=== PATIENT | female | born 1995 | race Two or more races ===

== ENCOUNTER 2021-04-28 08:40 | Emergency (ER) | payer MEDICAID ==
[~2021-04-28] VITALS: Ht 154.9 cm; Wt 58.3 kg
[2021-04-28] MEDS ORDERED: PHENAZOPYRIDINE 200 MG TABLET PO ONE (09:30)
[2021-04-28] MEDS ORDERED: PHENAZOPYRIDINE 200 MG TABLET ONE (09:31)
[2021-04-28 09:38] LABS: MICROSCOPIC INDICATED
[2021-04-28 10:28] LABS: BASOPHILS % (AUTO) 0 % (0-1); EOSINOPHILS % (AUTO) 1 % (1-7); LYMPHOCYTES % (AUTO) 9 % (22-44); MEAN CORPUSCULAR HEMOGLOBIN 29.1 pg (27.0-34.8); MEAN CORPUSCULAR HGB CONC 33.9 g/dL (32.4-35.8); MEAN PLATELET VOLUME 8.3 fL (7.4-10.4); MONOCYTES % (AUTO) 4 % (2-9); NEUTROPHILS % (AUTO) 86 % (42-75); PLATELET COUNT 205 x10^3/uL (130-400); RED BLOOD COUNT 4.88 x10^6/uL (3.82-5.3)
[2021-04-28 10:37] LABS: ALBUMIN 4.1 g/dL (3.4-5.0); ANION GAP 4 mmol/L (5-15); CHLORIDE 108 mmol/L (98-107); CREATININE 0.64 mg/dL (0.55-1.02)
[2021-04-28 11:22] VITALS: BP 115/72
[2021-04-28] MEDS ORDERED: CEFTRIAXONE 1,000 MG ONE (11:29)
[2021-04-28] MEDS ORDERED: CEFTRIAXONE 1,000 MG IM ONE (11:30)
[2021-04-28] MEDS ORDERED: LIDOCAINE-MPF 1%, 5ML ONE (11:31)
== END 2021-04-28 13:10 | disposition home or self-care (01) ==
LOC: ED 10:24
DX: N30.00 Acute cystitis without hematuria (principal); N18.9 Chronic kidney disease, unspecified
CPT/HCPCS: 36415; 80048; 81001; 82040; 84702; 85025; 87077; 87086; 87147; 96372; 99283; J0696; 87186